=== PATIENT | male | born 1980 | race African-American/Black ===

== ENCOUNTER 2019-09-22 00:01 | Emergency (ER) | payer SELFPAY ==
[2019-09-22] MEDS ORDERED: hydrOXYzine 25 MG TAB ONE ×2 (00:53→00:55)
[2019-09-22] MEDS ORDERED: hydrOXYzine Pamoate 25 mg Capsule ONE (00:54)
== END 2019-09-22 01:06 | disposition home or self-care (01) ==
LOC: ERS 00:01
DX: F41.1 Generalized anxiety disorder (principal); F43.0 Acute stress reaction; F32.9 Major depressive disorder, single episode, unspecified; J45.909 Unspecified asthma, uncomplicated; F17.210 Nicotine dependence, cigarettes, uncomplicated; Z79.51 Long term (current) use of inhaled steroids
CPT/HCPCS: 93005; Q0177

== ENCOUNTER 2019-10-23 14:17 | Emergency (ER) | payer SELFPAY ==
[2019-10-23] MEDS ORDERED: Ketorolac Tromethamine 30 MG/ML VIAL ONE (14:31)
== END 2019-10-23 15:04 | disposition home or self-care (01) ==
LOC: ERS 14:17
DX: S39.012A Strain of muscle, fascia and tendon of lower back, initial encounter (principal); F17.210 Nicotine dependence, cigarettes, uncomplicated; J45.909 Unspecified asthma, uncomplicated; F32.9 Major depressive disorder, single episode, unspecified; F41.9 Anxiety disorder, unspecified; X50.1XXA Overexertion from prolonged static or awkward postures, initial encounter
CPT/HCPCS: 96372; 99283; J1885

== ENCOUNTER 2020-07-06 14:59 | Emergency (ER) | payer OTHER, SELFPAY ==
[2020-07-06] MEDS ORDERED: Ketorolac Tromethamine 30 MG/ML VIAL ONE (15:28)
== END 2020-07-06 16:51 | disposition home or self-care (01) ==
LOC: ERS 14:59
DX: M54.5 Low back pain (principal); M53.3 Sacrococcygeal disorders, not elsewhere classified; J45.909 Unspecified asthma, uncomplicated; F41.9 Anxiety disorder, unspecified; F32.9 Major depressive disorder, single episode, unspecified; F17.210 Nicotine dependence, cigarettes, uncomplicated; X50.1XXA Overexertion from prolonged static or awkward postures, initial encounter
CPT/HCPCS: 96372; 99283; J1885